=== PATIENT | male | born 1955 | race Caucasian/White ===

== ENCOUNTER 2021-03-14 11:37 | Emergency (ER) | payer MEDICARE, SELFPAY ==
[~2021-03-14] VITALS: Ht 167.6 cm; Wt 99.8 kg
[2021-03-14] MEDS ORDERED: AMPICILLIN SOD/SULBACTAM SOD 3 GM in D5W MINI-BAG PLUS 100 ML IV ONE (12:10)
[2021-03-14] MEDS ORDERED: cefTRIAXone SOD 2 GM in D5W MINI-BAG PLUS 50 ML IV ONE (12:30)
--- NOTE | 2021-03-14 12:31 | REP ---
INDICATION: FALL OFF LADDER. COMPARISON: None. TECHNIQUE: Soft tissue and bone window axial images with coronal reconstructions provided. FINDINGS: Lateral ventricles are midline, symmetric and without dilatation or displacement. There proportionate to is sulci and all of this is age-appropriate. See no significant atrophy. There are few calcifications in the falx. Basal ganglia are symmetric and normal. Mejía-white junction differentiation is maintained. There is no vascular territory infarct, intracranial hemorrhage, mass or mass effect. However, there is air in the subdural spaces including floor of the anterior and middle cranial fossa as well as the posterior fossa. There is also air in the suprasellar cistern region and carotid siphons. No bleed. Precise origin of this air is not clear based on the head CT. Suspect that it may be from the roof of the left frontal sinus but I cannot see clearly demonstrated skull fracture. The mastoids are symmetric and normal. Some minor ethmoid sinus mucosal thickening posteriorly and mucosal thickening in the right sphenoid. No air-fluid levels in the frontal sinuses. Remainder of the visible calvarium and skull base unremarkable. IMPRESSION: 1. No intracranial hemorrhage, acute infarct or visible skull fracture but I am suspicious for a skull base fracture based on the presence of air in the subdural spaces in the anterior, middle and posterior cranial fossae. I cannot clearly define a skull fracture but could be from the left frontal sinus or other structure. Thin-section CT through the skull base/temporal bones may be helpful. 2. No significant atrophy, white matter tract disease or other acute finding. <Electronically signed by Mukund Tucker > 03/14/21 [id number]
--- NOTE | 2021-03-14 12:34 | REPVR ---
PROCEDURE INFORMATION: Exam: CT Maxillofacial Without Contrast Exam date and time: 03/14/2021 11:48 AM Age: 65 years old Clinical indication: Injury or trauma; Fall; Blunt trauma (contusions or hematomas); Cheek bone and orbit/periorbital; Left; Additional info: Fall off ladder TECHNIQUE: Imaging protocol: Computed tomography images of the face without contrast. Radiation optimization: All CT scans at this facility use at least one of these dose optimization techniques: automated exposure control; mA and/or kV adjustment per patient size (includes targeted exams where dose is matched to clinical indication); or iterative reconstruction. COMPARISON: No relevant prior studies available. FINDINGS: Orbital cavity: A tiny focus of extraconal air is noted along the left orbital roof. There is no retrobulbar hemorrhage, proptosis, or muscle entrapment. The globes are intact. Bones/joints: There is a subtle nondepressed or nondisplaced fracture involving the posterior left orbital roof. The fracture likely extends into the planum sphenoidale and cribriform plate. A tiny fracture involving the posterior left lamina papyracea (medial orbital wall) is present. Additionally, there are acute fractures involving the anterior and posterior esposito of the left sphenoid sinus (superior aspect of the sinus). The posterior wall fracture extends into the sella and left cavernous sinus. There is an age-indeterminate fracture involving the anterior wall of the left maxillary sinus. The fracture extends into the medial wall of the left maxillary sinus, near the base of the left nasal bone. Paranasal sinuses: There is mild mucosal thickening noted within the paranasal sinuses. Minimal blood or fluid is noted in the posterior left ethmoid sinus and the sphenoid sinus. Mastoid air cells: The mastoid air cells are clear. Soft tissues: Left periorbital soft tissue swelling is present. A left forehead laceration is noted. Brain: Extensive pneumocephalus is present. A follow-up head CT is recommended. IMPRESSION: 1. Acute fractures involving the left orbit, left sphenoid sinus, left cribriform plate, and left maxillary sinus. See discussion above. 2. Extensive pneumocephalus is present. A follow-up head CT is recommended. Electronically signed by: Ramon Kang On 03/14/2021 12:34:12 PM
--- NOTE | 2021-03-14 12:38 | REP ---
INDICATION: FALL OFF LADDER. COMPARISON: None. TECHNIQUE: Axial soft tissue and bone windows with coronal and sagittal bone windows reconstructed per our trauma prone FINDINGS: There is subdural air in the posterior fossa as on CT brain. Mastoids were symmetric and normal without any definite evidence of a fractured temporal bone on limited evaluation on this study. Occipital bone grossly intact. The ring of C1 is preserved. The dens is without fracture and shows normal articulation with the anterior arch and lateral masses of C1. There is spondylosis with disc space narrowing and marginal osteophytes at C4-5 through C6-7 posterior osteophytes at those 3 levels are present. No compression fractures noted. There is central canal stenosis with the posterior osteophytes and disc bulge at these 3 levels. Uncinate spurring is seen. Foramina are marginally adequate at C6-7 and C5-6, mildly stenotic on the right at C4-5 and C3-4. Posterior elements show spinous processes, lamina, pedicles, facets, transverse processes and transverse foramina grossly intact there is facet arthropathy at multiple levels. Neck soft tissues are grossly unremarkable. Air bubbles are seen at the craniocervical junction but not into the neural canal of the cervical spine. No prevertebral swelling. See no torticollis. Portions of the 1st 2 rib pairs and limited visualization of lung apices are without acute finding. IMPRESSION: 1. Cervical spondylosis without compression fracture or destructive lesion there is central canal stenosis from C4-5 through C 6-7 and some mild foraminal encroachment on the right at C5-6 and C6-7. The other foramina are adequate or marginally adequate. 2. Posterior fossa shows some subdural air, source not clearly defined based on this examination. I do not see fracture through the visible portion of temporal bones, opacification of any of the mastoid air cells are except little bone fracture. No air in the cervical neural canal. <Electronically signed by Mukund Tucker > 03/14/21 [id number]
[2021-03-14 13:05] LABS: BASO # 0.1 10^3/uL (0.0-0.2); BASO % 0.6 % (0.0-1.0); EOS # 0.2 10^3/uL (0.0-0.5); EOS % 1.6 % (0.0-3.0); HEMATOCRIT 47.8 % (42.0-52.0); HEMOGLOBIN 16.1 g/dl (13.5-17.5); LYMPH # 3.4 10^3/uL (1.5-5.0); LYMPH % 32.9 % (24.0-44.0); MEAN CORPUSCULAR HEMOGLOBIN 30.7 pg (27.0-33.0); MEAN CORPUSCULAR HGB CONC 33.7 g/dl (32.0-36.5); MONO % 10.1 % (2.0-8.0); NEUTROPHILS # 5.5 10^3/uL (1.5-8.5); NEUTROPHILS % 54.3 % (36.0-66.0); PLATELET COUNT, AUTOMATED 208 10^3/uL (150-450); RED BLOOD COUNT 5.25 10^6/uL (4.30-6.10); WHITE BLOOD COUNT 10.2 10^3/uL (4.0-10.0)
[2021-03-14 13:14] LABS: INR 1.01; PROTHROMBIN TIME 13.7 SECONDS (12.7-14.5)
[2021-03-14 13:15] LABS: PARTIAL THROMBOPLASTIN TIME 30.2 SECONDS (25.9-37.0)
[2021-03-14 13:30] LABS: ALBUMIN 3.4 GM/DL (3.2-5.2); ALT/SGPT 362 U/L (12-78); AMYLASE 80 U/L (25-115); BILIRUBIN,DIRECT 0.3 MG/DL (0.0-0.2); BILIRUBIN,TOTAL 0.8 MG/DL (0.2-1.0); BLOOD UREA NITROGEN 22 MG/DL (7-18); CALCIUM LEVEL 9.4 MG/DL (8.8-10.2); CARBON DIOXIDE LEVEL 24 MEQ/L (21-32); CHLORIDE LEVEL 106 MEQ/L (98-107); CREATININE FOR GFR 0.87 MG/DL (0.70-1.30); ETHYL ALCOHOL (ETHANOL) 0.003 % (0.000-0.010); GLOMERULAR FILTRATION RATE > 60.0 (>49); GLUCOSE, FASTING 145 MG/DL (70-100); LIPASE 194 U/L (73-393); POTASSIUM SERUM 4.1 MEQ/L (3.5-5.1); SODIUM LEVEL 138 MEQ/L (136-145); TOTAL PROTEIN 7.6 GM/DL (6.4-8.2)
--- NOTE | 2021-03-14 13:42 | REP ---
INDICATION: trauma. COMPARISON: None. TECHNIQUE: Single portable AP view of the chest was performed. FINDINGS: There is no acute infiltrate or pulmonary edema. Lungs are clear. The heart is not significantly enlarged. The mediastinal silhouette is unremarkable. The visualized osseous structures are intact. IMPRESSION: No acute pulmonary disease. <Electronically signed by Yoni Mejía > 03/14/21 [id number]
[2021-03-14 15:45] VITALS: BP 178/108
== END 2021-03-14 15:58 | disposition short-term general hospital (02) ==
LOC: M ED 11:37
DX: G93.89 Other specified disorders of brain (principal); S01.112A Laceration without foreign body of left eyelid and periocular area, initial encounter; S02.19XA Other fracture of base of skull, initial encounter for closed fracture; S02.40DA Maxillary fracture, left side, initial encounter for closed fracture; S02.122A Fracture of orbital roof, left side, initial encounter for closed fracture; S50.312A Abrasion of left elbow, initial encounter; W11.XXXA Fall on and from ladder, initial encounter; Y92.018 Other place in single-family (private) house as the place of occurrence of the external cause
CPT/HCPCS: 70450; 70486; 71045; 72125; 80048; 80076; 82077; 82150; 83605; 83690; 85025; 85610; 85730; 86850; 86900; 86901; 93041; 94760; 96365; 99285; J0696

== ENCOUNTER 2023-07-26 08:49 | Day surgery (SDC) | payer OTHER ==
[~2023-07-26] VITALS: Ht 167.6 cm; Wt 103.1 kg
[~2023-07-26 08:49] MED LIST: ATROPINE SULFATE 1% OPHTH SOLN 2ML BTL OD SCH; LIDOCAINE 3.5 % 1ML OPHTH TOPICAL GEL OU ONE; LISI20TA33 PO; OFLOXACIN 0.3 % (OCUFLOX) OPTH SOL 5ML OD ONE; PHENYLEPHRINE 10% OPHTH SOL 5ML OD PRN; PHENYLEPHRINE 2.5% OPHTH SOL 2ML OD SCH; THERTAB52 PO; TROPICAMIDE 1% OPHTH SOLN 15ML OD SCH; fentaNYL 100 MCG/2 ML INJECTION As Ordered ONE
[2023-07-26] MEDS: LIDOCAINE 1% SDV 5ML VIAL As Ordered ONE (11:15)
[2023-07-26] MEDS: BSS IRRIG/VANCO(10MG)/TOBRA(5MG)/EPINEPH(1:1000-0.5CC)500ML BAG-ORONLY As Ordered ONE (11:15)
[2023-07-26] MEDS: CEFUROXIME 1MG/0.1ML INTRACAMERAL INJ As Ordered ONE (11:20)
[2023-07-26] MEDS ORDERED: hydrALAZINE 20MG/ML 1ML VIAL As Ordered ONE (11:20)
[2023-07-26 11:40] VITALS: BP 139/88; TEMP 97.1; O2SAT 98
== END 2023-07-26 12:05 | disposition home or self-care (01) ==
LOC: M SDC 08:49
PROVIDERS: ATTEND Ophthalmology
DX: H25.11 Age-related nuclear cataract, right eye (principal); H40.1111 Primary open-angle glaucoma, right eye, mild stage; I10 Essential (primary) hypertension; Z79.899 Other long term (current) drug therapy; Z87.891 Personal history of nicotine dependence
CPT/HCPCS: 66991; C1783; J0360; J0697; J3010; V2632

== ENCOUNTER 2023-09-20 05:52 | Day surgery (SDC) | payer OTHER ==
[~2023-09-20] VITALS: Ht 167.6 cm; Wt 101.2 kg
[~2023-09-20 05:52] MED LIST changes: -ATROPINE SULFATE 1% OPHTH SOLN 2ML BTL OD SCH; -LIDOCAINE 3.5 % 1ML OPHTH TOPICAL GEL OU ONE; -OFLOXACIN 0.3 % (OCUFLOX) OPTH SOL 5ML OD ONE; -PHENYLEPHRINE 10% OPHTH SOL 5ML OD PRN; -PHENYLEPHRINE 2.5% OPHTH SOL 2ML OD SCH; -TROPICAMIDE 1% OPHTH SOLN 15ML OD SCH; -fentaNYL 100 MCG/2 ML INJECTION As Ordered ONE
[2023-09-20] MEDS ORDERED: PHENYLEPHRINE 10% OPHTH SOL 5ML OS PRN (06:00)
[2023-09-20] MEDS ORDERED: ASPI81TA26 PO (06:25)
[2023-09-20] MEDS ORDERED: [UNRECOGNIZED DRUG - CODE] PO (06:25)
[2023-09-20] MEDS ORDERED: RA M200C4 PO (06:25)
[2023-09-20] MEDS: PHENYLEPHRINE 2.5% OPHTH SOL 2ML OS SCH (06:54)
[2023-09-20] MEDS: OFLOXACIN 0.3 % (OCUFLOX) OPTH SOL 5ML OS ONE (06:54)
[2023-09-20] MEDS: ATROPINE SULFATE 1% OPHTH SOLN 2ML BTL OS SCH (06:54)
[2023-09-20] MEDS: TROPICAMIDE 1% OPHTH SOLN 15ML OS SCH (06:55)
[2023-09-20] MEDS: LIDOCAINE 3.5 % 1ML OPHTH TOPICAL GEL OU ONE (06:55)
[2023-09-20] MEDS ORDERED: fentaNYL 100 MCG/2 ML INJECTION As Ordered ONE (07:23)
[2023-09-20] MEDS ORDERED: MIDAZOLAM INJ 2MG/2ML VIAL As Ordered ONE (07:23)
[2023-09-20] MEDS: LIDOCAINE 1% SDV 5ML VIAL As Ordered ONE (07:45)
[2023-09-20] MEDS: CEFUROXIME 1MG/0.1ML INTRACAMERAL INJ As Ordered ONE (07:46)
[2023-09-20] MEDS ORDERED: hydrALAZINE 20MG/ML 1ML VIAL As Ordered ONE (07:46)
[2023-09-20] MEDS: BSS IRRIG/VANCO(10MG)/TOBRA(5MG)/EPINEPH(1:1000-0.5CC)500ML BAG-ORONLY As Ordered ONE (07:47)
[2023-09-20] MEDS: DUOVISC (0.50ML VISCOAT/0.85ML PROVISC) OPHTH KIT As Ordered ONE (07:51)
[2023-09-20 08:01] VITALS: BP 150/74; TEMP 97.7; O2SAT 96
== END 2023-09-20 08:15 | disposition home or self-care (01) ==
LOC: M SDC 05:52
PROVIDERS: ATTEND Ophthalmology
DX: H25.12 Age-related nuclear cataract, left eye (principal); H40.1122 Primary open-angle glaucoma, left eye, moderate stage; H57.03 Miosis; I10 Essential (primary) hypertension; Z79.899 Other long term (current) drug therapy
CPT/HCPCS: 66989; C1783; J0360; J0697; J2250; J3010; V2632